=== PATIENT | male | born 1980 | race Caucasian/White ===

== ENCOUNTER 2023-01-14 08:50 | Inpatient (IN) | payer OTHER, SELFPAY ==
[2023-01-14 10:10] LABS: #Basophils 0.1 10x3/uL (0.0-0.2); #Monocytes 1.6 10x3/uL (0.0-1.1); #Neutrophils 12.3 10x3/uL (1.5-8.4); %Basophils 0.6 % (0.0-2.0); %Eosinophils 0.3 % (0.0-6.0); %Lymphocytes 6.5 % (18.0-47.0); %Monocytes 10.8 % (0.0-10.0); %Neutrophils 81.3 % (40.0-75.0); Hemoglobin 15.3 g/dL (13.5-17.5); Mean Corpuscular HGB CONC 33.3 g/dL (32.0-36.0); Mean Corpuscular Hemoglobin 28.3 pg (27.0-33.0); Mean Corpuscular Volume 84.8 fl (81.2-95.1); Mean Platelet Volume 10.1 fl (7.4-10.4); Platelet Count 307 10x3/uL (150-450); RBC Distribution Width 13.1 % (11.5-14.5); Red Blood Cell (RBC) Count 5.41 10x6/uL (4.32-5.72); White Blood Cell (WBC) Count 15.2 10x3/uL (3.5-10.5)
[2023-01-14 10:14] LABS: ALT (SGPT) 19 U/L (8-55); AST (SGOT) 15 U/L (5-34); Albumin 4.4 g/dL (3.5-5.0); Alkaline Phosphatase 124 U/L (40-110); Anion Gap 18 mmol/L (10-20); BUN (Urea Nitrogen) 9 mg/dL (8.9-20.6); Bilirubin, Total 1.3 mg/dL (0.2-1.2); Calc. Creatinine Clearance 0 mL/min (70-130); Calcium 11.1 mg/dL (7.8-10.44); Carbon Dioxide 24 mmol/L (22-29); Chloride 96 mmol/L (98-107); Estimated GFR 95; Globulin 4.1 g/dL (2.4-3.5); Glucose 110 mg/dL (70-105); Lipase 5 U/L (8-78); Potassium 3.9 mmol/L (3.5-5.1); Protein, Total 8.5 g/dL (6.0-8.3); Sodium 134 mmol/L (136-145)
[2023-01-14] MEDS ORDERED: Iopamidol 300 61% 100 ML VIAL FS ONE (11:06)
[2023-01-14] MEDS ORDERED: Piperacillin/Tazobactam 4.5 GM VIAL ONE (12:39)
[2023-01-14] MEDS ORDERED: D5 1/2 NS w/20 mEq KCL 1,000 ML ONE (14:28)
[2023-01-14] MEDS ORDERED: TETANUS, DIPHTHERIA TOX,ADULT (TDVAX) 0.5 ML VIAL IM ONE (15:03)
[2023-01-14] MEDS ORDERED: hydrALAZINE 20 MG/ML VIAL SLOW IVP PRN (15:03)
[2023-01-14] MEDS ORDERED: Ondansetron PF 4 MG/2 ML Vial IVP PRN (15:03)
[2023-01-14] MEDS ORDERED: Ondansetron ODT 4 MG TAB PO PRN (15:03)
[2023-01-14] MEDS ORDERED: HYDROmorphone 0.5 MG/0.5 ML SYRINGE ONE (19:02)
[2023-01-14] MEDS ORDERED: Piperacillin/Tazobactam 4.5 GM in Sodium Chloride 0.9% 100 ML IVPB SCH (22:00)
[2023-01-14] MEDS ORDERED: Piperacillin/Tazobactam 3.375 GM in Sodium Chloride 0.9% 100 ML IVPB SCH (22:00)
[2023-01-14] MEDS ORDERED: Ketorolac Tromethamine 30 MG/ML VIAL IVP SCH (22:00)
[2023-01-14] MEDS ORDERED: Ketorolac Tromethamine 30 MG/ML VIAL ONE (22:15)
[2023-01-14] MEDS ORDERED: Piperacillin/Tazobactam 3.375 GM VIAL ONE (22:16)
[2023-01-15 00:06] VITALS: BMI 24.2
[2023-01-15] MEDS ORDERED: Piperacillin/Tazobactam 3.375 GM in Sodium Chloride 0.9% 100 ML IVPB SCH (02:00)
[2023-01-15] MEDS ORDERED: Piperacillin/Tazobactam 2.25 GM VIAL ONE (02:03)
[2023-01-15] MEDS ORDERED: Piperacillin/Tazobactam 3.375 GM VIAL ONE (02:04)
[2023-01-15] MEDS ORDERED: Ketorolac Tromethamine 30 MG/ML VIAL ONE ×2 (02:05→11:33)
[2023-01-15] MEDS ORDERED: Ketorolac Tromethamine 30 MG/ML VIAL IVP SCH (04:00)
[2023-01-15] MEDS ORDERED: Bupivacaine HCl 0.5%/Epinephrine 1:200,000/PF 30 ml Vial ONE (06:47)
[2023-01-15] MEDS ORDERED: Lidocaine 2% 6 ML (Jelly) SYR ONE (06:48)
[2023-01-15] MEDS ORDERED: Scopolamine 1.5 mg/72 hour Patch ONE (07:10)
[2023-01-15] MEDS ORDERED: Midazolam HCl 2 mg/2 ml Vial ONE ×2 (07:25→07:26)
[2023-01-15] MEDS ORDERED: Fentanyl 250 MCG/5 ML VIAL ONE (07:26)
[2023-01-15] MEDS ORDERED: PROPOFOL 40 ML ONE (07:26)
[2023-01-15] MEDS ORDERED: Ondansetron PF 4 MG/2 ML Vial ONE (07:28)
[2023-01-15] MEDS ORDERED: Lidocaine 2% PF 5 ML VIAL ONE (07:28)
[2023-01-15] MEDS ORDERED: Dexamethasone 4 mg/ml Vial ONE (07:28)
[2023-01-15] MEDS ORDERED: Glycopyrrolate 0.2 MG/ML 5 ML SYRINGE ONE (07:31)
[2023-01-15] MEDS ORDERED: Rocuronium Bromide 10 MG/ML (10ML VIAL) ONE (07:31)
[2023-01-15] MEDS ORDERED: ePHEDrine Sulfate 50 MG/10 ML VIAL ONE (07:32)
[2023-01-15] MEDS ORDERED: SUGAMMADEX SODIUM 200 MG/2 ML VIAL ONE (08:30)
[2023-01-15] MEDS ORDERED: Pantoprazole 40 MG VIAL IVP SCH (09:00)
[2023-01-15] MEDS ORDERED: Acetaminophen 500 MG TAB PO PRN (09:24)
[2023-01-15] MEDS ORDERED: fentaNYL 50 mcg/mL 1 mL Vial ONE ×2 (09:27→09:44)
[2023-01-15] MEDS ORDERED: Acetaminophen 500 MG TAB PO SCH (10:00)
[2023-01-15] MEDS: Piperacillin/Tazobactam 3.375 GM in Sodium Chloride 0.9% 100 ML IVPB SCH ×2 (13:00→18:32)
[2023-01-15] MEDS: Ketorolac Tromethamine 30 MG/ML VIAL IVP SCH ×2 (13:56→18:31)
[2023-01-15] MEDS ORDERED: Piperacillin/Tazobactam 4.5 GM in Sodium Chloride 0.9% 100 ML IVPB SCH (14:00)
[2023-01-15] MEDS: Sodium Chloride 0.9% 1,000 ML IV SCH (15:27)
[2023-01-15] MEDS: traMADol HCl 50 MG TAB PO PRN (20:19)
[2023-01-16] MEDS: Ketorolac Tromethamine 30 MG/ML VIAL IVP SCH ×4 (00:39→17:15)
[2023-01-16] MEDS: Sodium Chloride 0.9% 1,000 ML IV SCH ×3 (00:40→19:32)
[2023-01-16] MEDS: Piperacillin/Tazobactam 3.375 GM in Sodium Chloride 0.9% 100 ML IVPB SCH ×3 (02:40→19:32)
[2023-01-16] MEDS: Polyethylene Glycol 3350 17 GM Packet PO SCH ×2 (08:31→08:35)
[2023-01-16] MEDS: Lansoprazole 3 MG/ML ORAL SUSPENSION PO SCH (08:31)
[2023-01-16] MEDS: traMADol HCl 50 MG TAB PO PRN (17:14)
[2023-01-16] MEDS: Senokot S 8.6-50 MG TAB PO SCH (21:04)
[2023-01-16] MEDS: Morphine 4 MG/ML VIAL SLOW IVP PRN (21:05)
[2023-01-17] MEDS: Ketorolac Tromethamine 30 MG/ML VIAL IVP SCH ×4 (00:37→16:41)
[2023-01-17] MEDS: Piperacillin/Tazobactam 3.375 GM in Sodium Chloride 0.9% 100 ML IVPB SCH ×3 (02:34→16:41)
[2023-01-17] MEDS: Sodium Chloride 0.9% 1,000 ML IV SCH ×3 (08:43→15:58)
[2023-01-17] MEDS: Senokot S 8.6-50 MG TAB PO SCH ×2 (08:43→20:35)
[2023-01-17] MEDS: Polyethylene Glycol 3350 17 GM Packet PO SCH (08:43)
[2023-01-17] MEDS: Lansoprazole 3 MG/ML ORAL SUSPENSION PO SCH (08:48)
[2023-01-18] MEDS: Ketorolac Tromethamine 30 MG/ML VIAL IVP SCH ×3 (00:23→11:49)
[2023-01-18] MEDS: Morphine 4 MG/ML VIAL SLOW IVP PRN (00:29)
[2023-01-18] MEDS: Piperacillin/Tazobactam 3.375 GM in Sodium Chloride 0.9% 100 ML IVPB SCH ×2 (02:05→08:22)
[2023-01-18] MEDS: Sodium Chloride 0.9% 1,000 ML IV SCH ×2 (02:05→08:22)
[2023-01-18] MEDS: Lansoprazole 3 MG/ML ORAL SUSPENSION PO SCH (08:22)
[2023-01-18] MEDS: Polyethylene Glycol 3350 17 GM Packet PO SCH (08:22)
[2023-01-18] MEDS: Senokot S 8.6-50 MG TAB PO SCH (08:22)
[2023-01-18 13:07] VITALS: BP 119/65; TEMP 98.3
[2023-01-18] MEDS ORDERED: Ibuprofen 600 MG TAB PO PRN (18:00)
[2023-01-18] MEDS ORDERED: Amoxicillin/Potassium Clav 875 MG TAB PO SCH (21:00)
== END 2023-01-18 16:01 | disposition home or self-care (01) | DRG 358 ==
LOC: CSHERS 08:50 → CSHERHOLD 20:08 → CSHTELE 01-15 13:19
PROVIDERS: ADMIT Internal Medicine; ATTEND Internal Medicine
PROC: 069Y3ZZ Drainage of Lower Vein, Percutaneous Approach (ICD-10-PCS; principal; 2023-01-15)
PROC: 0D9W4ZZ Drainage of Peritoneum, Percutaneous Endoscopic Approach (ICD-10-PCS; 2023-01-15)
DX: K57.20 Diverticulitis of large intestine with perforation and abscess without bleeding (principal); K40.20 Bilateral inguinal hernia, without obstruction or gangrene, not specified as recurrent; K64.5 Perianal venous thrombosis; Z98.890 Other specified postprocedural states; Z23 Encounter for immunization
CPT/HCPCS: 74177; 80053; 83690; 85025; 96365; 96366; 96375; J1100; J1170; J1650; J1885; J2001; J2250; J2270; J2405; J2543; J2704; J3010; J3480; J3490; J7050; Q9967

== ENCOUNTER 2023-01-25 19:59 | Emergency (ER) | payer SELFPAY ==
[2023-01-25] MEDS ORDERED: Morphine 4 MG/ML VIAL ONE (21:40)
[2023-01-26] MEDS ORDERED: Lidocaine/Transparent Dressing 1 EACH KIT ONE (00:35)
[2023-01-26] MEDS ORDERED: traMADol HCl 50 MG TAB ONE (01:20)
== END 2023-01-26 01:22 | disposition home or self-care (01) ==
LOC: CSHERS 19:59
DX: K64.8 Other hemorrhoids (principal); K62.89 Other specified diseases of anus and rectum
CPT/HCPCS: 96372; 99283; J2270